=== PATIENT | female | born 1990 | race Caucasian/White ===

== ENCOUNTER 2023-10-26 07:50 | Emergency (ER) | payer OTHER ==
[2023-10-26 07:59] VITALS: RESP 20; BMI 44.8
[2023-10-26 09:20] LABS: BASO % 0.3 % (0-2.0); HEMATOCRIT 35.9 % (32.4-45.2); HEMOGLOBIN 11.8 GM/dL (10.7-15.3); MCH 26.6 pg (25.7-33.7); MCHC 32.9 g/dl (32.0-36.0); MEAN PLT VOLUME 8.1 fl (7.5-11.1); MONO % 6.6 % (3.8-10.2); NEUT % 81.1 % (42.8-82.8); PLATELET COUNT 315 10^3/uL (134-434); RBC 4.43 M/mm3 (3.60-5.2); RDW 13.7 % (11.6-15.6); WHITE BLOOD COUNT 8.5 K/mm3 (4.0-10.0)
[2023-10-26 09:26] LABS: POTASSIUM 3.6 mmol/L (3.5-5.1)
[2023-10-26 09:28] LABS: ALBUMIN 2.7 g/dl (3.4-5.0); CALCIUM 8.9 mg/dL (8.5-10.1)
[2023-10-26 09:29] LABS: BLOOD UREA NITROGEN 5.8 mg/dL (7-18)
[2023-10-26 09:32] LABS: CREATININE 0.5 mg/dL (0.55-1.3)
[2023-10-26 09:33] LABS: BILIRUBIN,TOTAL 0.4 mg/dL (0.2-1); TOT PROT 6.6 g/dl (6.4-8.2)
[2023-10-26 09:39] LABS: EPI CELLS >36 /uL (0-25.1); HYALINE CASTS 4 /uL (0-3.1); PH,URINE 5.5 (5.0-8.0); URINE APPEARANCE CLOUDY; URINE BILIRUBIN 2+ (NEGATIVE); URINE COLOR DK YELLOW; URINE GLUCOSE (UA) NEGATIVE (NEGATIVE); URINE KETONE TRACE (NEGATIVE); URINE LEUK ESTERASE TRACE (NEGATIVE); URINE NITRITE POSITIVE (NEGATIVE); URINE PROTEIN 1+ (NEGATIVE); URINE RBC 313 /uL (0-23.9); URINE WBC 53 /uL (0-25.8)
[2023-10-26 11:26] LABS: URINE BACTERIA 261.2 /uL (0-1359)
[2023-10-26 11:59] VITALS: TEMP 98.5
[2023-10-26 15:12] VITALS: BP 132/87; PULSE 93
== END 2023-10-26 15:35 | disposition home or self-care (01) ==
LOC: JER 07:50
DX: O23.12 Infections of bladder in pregnancy, second trimester (principal); O20.9 Hemorrhage in early pregnancy, unspecified; O98.512 Other viral diseases complicating pregnancy, second trimester; U07.1 COVID-19; Z3A.15 15 weeks gestation of pregnancy
CPT/HCPCS: 0241U-QW; 36415; 76817-TC; 80053; 81003; 84702; 85025; 86850; 86900; 86901; 87077; 87086; 99284-25